=== PATIENT | female | born 1955 | race Caucasian/White ===

== ENCOUNTER 2018-03-30 10:15 | Outpatient (CLI) | payer MEDICAID ==
[~2018-03-30] VITALS: Ht 160 cm; Wt 78.5 kg
[~2018-03-30 10:15] MED LIST: ASPI-587 PO; BUDE10.22 IH; CITA20TA4 PO; DEXL60CA PO; LEVA15HF2 IH; MULT-974 PO; NITR100C3 PO; OXYB92GE TD; PHEN200T27 PO; PREG150C PO; ROSU10TA12 PO; TIOT18CA IH
[2018-03-30] MEDS ORDERED: CITA40TA19 PO (10:25)
[2018-03-30] MEDS ORDERED: TIOT18CA2 IH (10:25)
[2018-03-30] MEDS ORDERED: CHOL200014 PO (10:25)
[2018-03-30] MEDS ORDERED: ASCO500C17 PO (10:25)
[2018-03-30] MEDS ORDERED: ROSU40TA22 PO (10:25)
[2018-03-30] MEDS ORDERED: DEXL60CA PO (10:25)
[2018-03-30] MEDS ORDERED: BUDE10.22 IH (10:25)
[2018-03-30] MEDS ORDERED: ASPI-999 PO (10:25)
[2018-03-30] MEDS ORDERED: LEVA15HF5 IH (10:25)
[2018-03-30] MEDS ORDERED: MULT1CAP27 PO (10:25)
[2018-03-30] MEDS ORDERED: VITA1CAP PO (10:25)
[2018-03-30] MEDS ORDERED: HYDR-3063 PO (10:25)
[2018-03-30] MEDS ORDERED: PREG150C PO (10:25)
[2018-03-31] MEDS ORDERED: NITR-65 PO (09:15)
[2018-03-31] MEDS ORDERED: PHEN-640 PO (09:15)
== END 2018-03-30 10:42 | disposition home or self-care (01) ==
LOC: PREOP 10:15
PROVIDERS: ATTEND Urology
DX: Z01.818 Encounter for other preprocedural examination (principal); N36.42 Intrinsic sphincter deficiency (ISD); N39.46 Mixed incontinence; N32.81 Overactive bladder

== ENCOUNTER 2018-03-31 06:01 | Day surgery (SDC) | payer MEDICAID ==
[~2018-03-31] VITALS: Ht 160 cm; Wt 78.5 kg
[~2018-03-31 06:01] MED LIST changes: +ASCO500C17 PO; +ASPI-999 PO; +CHOL200014 PO; +CITA40TA19 PO; +HYDR-3063 PO; +LEVA15HF5 IH; +MULT1CAP27 PO; +ROSU40TA22 PO; +TIOT18CA2 IH; +VITA1CAP PO
--- OUTSIDE RECORDS SUMMARY | 2018-03-31 06:05 | XMS REPORT ---
Author Author RALF MCKEON Organization [employer] Address Unknown Phone Unavailable Care Team Providers Care Screen Repairer Crusher Name Role Phone RALF MCKEON CP Unavailable Allergies No Known Allergies Problems Problem Type Condition Code Onset Dates Condition Status Assessment Encounter for dental examination Z01.20 Active Medications No Known Medications Procedures Procedure Coding System Code Date ADJUST COMPLETE DENTUR - MANDIBULAR CPT-4 D5411 Aug 09, 2015 Billing Notes on claim CPT-4 EC109 Aug 08, 2015 ADJUST COMPLETE DENTURE - MAXILLARY CPT-4 D5410 Aug 09, 2015 Dental no charge CPT-4 D0099 Aug 08, 2015 Vital Signs Date/Time: Aug 08, 2015 Blood Pressure Diastolic 58 mmHg Blood Pressure Systolic 98 mmHg Results No Known Results Summary Purpose [employer] Submission
--- OUTSIDE RECORDS SUMMARY | 2018-03-31 06:05 | XMS REPORT ---
Author Author RALF MCKEON Organization [employer] Address Unknown Phone Unavailable Care Team Providers Care Smudger Name Role Phone RALF MCKEON CP Unavailable Allergies No Known Allergies Problems Problem Type Condition Code Onset Dates Condition Status Assessment Dental examination Z01.20 Active Medications No Known Medications Procedures Procedure Coding System Code Date RELINE COMPLETE MANDIBULAR DENTURE CPT-4 D5731 November 08, 2015 RELINE COMPLETE MAXILLARY DENTURE CPT-4 D5730 November 08, 2015 Vital Signs Date/Time: November 07, 2015 Blood Pressure Diastolic 73 mmHg Blood Pressure Systolic 126 mmHg Results No Known Results Summary Purpose [employer] Submission
--- OUTSIDE RECORDS SUMMARY | 2018-03-31 06:05 | XMS REPORT ---
Author Author RALF MCKEON Organization [employer] Address Unknown Phone Unavailable Care Team Providers Care Mask Layout Designer Name Role Phone RALF MCKEON CP Unavailable Allergies, Adverse Reactions, Alerts Substance Reaction Event Type Penicillin G Sodium Info Not Available Drug Allergy Codeine Sulfate Info Not Available Drug Allergy Problems Problem Type Condition Code Onset Dates Condition Status Assessment Dental examination V72.2 Active Medications No Known Medications Procedures Procedure Coding System Code Date COMPLETE DENTURE - MANDIBULAR CPT-4 D5120 Jun 04, 2015 Billing Notes on claim CPT-4 EC109 Jul 04, 2015 COMPLETE DENTURE - MAXILLARY CPT-4 D5110 Jun 04, 2015 Vital Signs Date/Time: Jul 04, 2015 Blood Pressure Diastolic 77 mmHg Blood Pressure Systolic 124 mmHg Cardiac Monitoring Heart Rate 64 bpm Results No Known Results Summary Purpose [employer] Submission
--- OUTSIDE RECORDS SUMMARY | 2018-03-31 06:05 | XMS REPORT ---
Author Author RALF MCKEON Organization [employer] Address Unknown Phone Unavailable Care Team Providers Care Firer Watertender Name Role Phone RALF MCKEON CP Unavailable Allergies No Known Allergies Problems Problem Type Condition ICD-9 Code Onset Dates Condition Status Assessment Dental examination V72.2 Active Medications No Known Medications Procedures Procedure Coding System Code Date LTD ORAL EVALUATION - PROBLEM FOCUS CPT-4 D0140 May 09, 2015 Results No Known Results Summary Purpose [employer] Submission
--- OUTSIDE RECORDS SUMMARY | 2018-03-31 06:05 | XMS REPORT ---
Author Author RALF MCKEON Organization [employer] Address Unknown Phone Unavailable Care Team Providers Care Business Banking Officer Name Role Phone RALF MCKEON CP Unavailable Allergies, Adverse Reactions, Alerts Substance Reaction Event Type Penicillin G Sodium Info Not Available Drug Allergy Codeine Sulfate Info Not Available Drug Allergy Problems Problem Type Condition Code Onset Dates Condition Status Assessment Encounter for dental examination Z01.20 Active Medications No Known Medications Procedures Procedure Coding System Code Date Dental no charge CPT-4 D0099 Jun 27, 2015 Vital Signs Date/Time: Jun 27, 2015 Blood Pressure Diastolic 68 mmHg Blood Pressure Systolic 109 mmHg Cardiac Monitoring Heart Rate 64 bpm Results No Known Results Summary Purpose [employer] Submission
--- OUTSIDE RECORDS SUMMARY | 2018-03-31 06:05 | XMS REPORT ---
Author Author RALF MCKEON Organization [employer] Address Unknown Phone Unavailable Care Team Providers Care Beam Dyer Recessed Vat Name Role Phone RALF MCKEON CP Unavailable Allergies, Adverse Reactions, Alerts Substance Reaction Event Type Penicillin G Sodium Info Not Available Drug Allergy Codeine Sulfate Info Not Available Drug Allergy Problems Problem Type Condition Code Onset Dates Condition Status Assessment Encounter for dental examination Z01.20 Active Medications Medication Code System Code Instructions Start Date End Date Status Dosage Lyrica [facility] [id number] Orally not defined Vitamin D [facility] [id number] Orally not defined Procedures Procedure Coding System Code Date Billing Notes on claim CPT-4 EC109 Jun 04, 2015 Dental no charge CPT-4 D0099 Jun 04, 2015 Vital Signs Date/Time: Jun 04, 2015 Blood Pressure Diastolic 66 mmHg Blood Pressure Systolic 107 mmHg Cardiac Monitoring Heart Rate 78 bpm Results No Known Results Summary Purpose [employer] Submission
--- OUTSIDE RECORDS SUMMARY | 2018-03-31 06:05 | XMS REPORT | Continuity of Care Document ---
Author Author [facility] Organization [facility] Address Unknown Phone Unavailable Allergies Active Description Code Type Severity Reaction Onset Reported/Identified Relationship to Patient Clinical Status Yes methadone [id number] Drug Allergy Unknown HIVES, RASH 09/05/2013 Yes Penicillins [id number] Drug Allergy Unknown ANAPHYLACTIC 09/05/2013 Yes Penicillins [id number] Drug Allergy Severe ANAPHYLACTIC 12/04/2014 Yes methadone [id number] Drug Allergy Moderate HIVES, RASH 12/04/2014 Medications There is no data. Problems Date Dx Coded Attending Type Code Diagnosis Diagnosed By 12/06/2014 MARICEL MORA MD Ot 272.0 12/06/2014 ABBY DESIR, MARICEL Palacios Ot 496 12/06/2014 ABBY DESIR, MARICEL Palacios Ot 596.51 12/06/2014 ABBY DESIR, MARICEL Palacios Ot 599.82 12/06/2014 ABBY DESIR, MARICEL Palacios Ot 788.30 12/06/2014 ABBY DESIR, MARICEL Palacios Ot V74.8 Procedures There is no data. Results There is no data. Encounters ACCT No. Visit Date/Time Discharge Status Pt. Type Provider Facility Loc./Unit Complaint [id number] 12/06/2014 07:33:00 12/06/2014 11:05:00 DIS Outpatient MARICEL MORA MD [facility] [id number] 12/01/2014 08:15:00 12/01/2014 23:59:59 CLS Outpatient MARICEL MORA MD [facility] PREOP [id number] 09/07/2013 06:10:00 09/07/2013 11:45:00 DIS Outpatient [id number] 09/05/2013 09:27:00 09/05/2013 23:59:59 CLS Outpatient
--- OUTSIDE RECORDS SUMMARY | 2018-03-31 06:05 | XMS REPORT ---
Author Author RALF MCKEON Organization [employer] Address Unknown Phone Unavailable Care Team Providers Care Gasoline Pump Installer Name Role Phone RALF MCKEON CP Unavailable Allergies, Adverse Reactions, Alerts Substance Reaction Event Type Penicillin G Sodium Info Not Available Drug Allergy Codeine Sulfate Info Not Available Drug Allergy Problems Problem Type Condition Code Onset Dates Condition Status Assessment Dental examination V72.2 Active Medications Medication Code System Code Instructions Start Date End Date Status Dosage Lyrica [facility] [id number] Orally not defined Vitamin D [facility] [id number] Orally not defined Procedures Procedure Coding System Code Date Dental no charge CPT-4 D0099 November 20, 2015 Vital Signs Date/Time: November 20, 2015 Blood Pressure Diastolic 68 mmHg Blood Pressure Systolic 113 mmHg Cardiac Monitoring Heart Rate 74 bpm Results No Known Results Summary Purpose [employer] Submission
[2018-03-31] MEDS ORDERED: NS (IVPB) 50 ML ONE (06:21)
[2018-03-31] MEDS ORDERED: cefTRIAXone 1 GM (ROCEPHIN) VIAL ONE (06:21)
[2018-03-31 06:25] VITALS: BP 126/80
[2018-03-31] MEDS ORDERED: LACTATED RINGERS 1,000 ML IV PRN (06:33)
[2018-03-31] MEDS ORDERED: cefTRIAXone INJECTION 1,000 MG in NS (IVPB) 50 ML IV ONE (06:45)
[2018-03-31] MEDS ORDERED: DEXAMETHASONE 10 MG/ML (DECADRON) 1 ML VIAL ONE (06:48)
[2018-03-31] MEDS ORDERED: ONDANSETRON 4 MG/2 ML (SDV) Z0FRAN ONE (06:48)
[2018-03-31] MEDS ORDERED: MIDAZOLAM 2 MG/2 ML (VERSED) VIAL ONE (06:48)
[2018-03-31] MEDS ORDERED: proPOfol 200 MG/20 ML (DIPRIVAN) VIAL IV ONE (06:48)
[2018-03-31] MEDS ORDERED: LIDOCAINE PF 2% 5 ML (XYLOCAINE) VIAL ONE (06:48)
[2018-03-31] MEDS ORDERED: fentaNYL INJECTION 100 MCG/2 ML AMP ONE (06:48)
[2018-03-31] MEDS ORDERED: FAMOTIDINE 20MG/2ML IV (PEPCID) ONE (06:49)
[2018-03-31] MEDS ORDERED: SEVOFLURANE (ULTANE) 15 ML INHAL SOLN ONE (06:56)
[2018-03-31] MEDS ORDERED: FAMOTIDINE 20MG/2ML IV (PEPCID) IV ONE (07:00)
--- NOTE | 2018-03-31 08:13 | Progress Note-Pre Operative ---
Pre-Operative Progress Note H&P Reviewed The H&P was reviewed, patient examined and no changes noted. Date Seen by Provider: Mar 31, 2018 Time Seen by Provider: 08:12 Date H&P Reviewed: Mar 31, 2018 Time H&P Reviewed: 08:12 Pre-Operative Diagnosis: MIXED INCONTINENCE, OAB, AND ISD MARICEL MORA MD Mar 31, 2018 8:12 am
--- NOTE | 2018-03-31 08:13 | Progress Note-Post Operative ---
Post-Operative Progess Note Surgeon (s)/Barrel Brander (s) Surgeon MARICEL MORA MD Barrel Brander: N/A Pre-Operative Diagnosis MIXED INCONTINENCE, OAB, AND ISD Post-Operative Diagnosis SAME Procedure & Operative Findings Date of Procedure 03/31/18 Procedure Performed/Findings MACROPLASTIQUE IMPLANT Anesthesia Type GENERAL Estimated Blood Loss Estimated blood loss (mL): NEGLIGIBLE Specimens/Packing Specimens Removed N/A Packing: N/A MARICEL MORA MD Mar 31, 2018 8:13 am
--- NOTE | 2018-03-31 08:16 | Discharge Inst-Urology ---
Discharge Inst-Urology Discharge Medications New, Converted, or Re-newed RX: RX on Chart Patient Instructions/Follow Up Plan Please make appointment to been seen in office in 4 weeks. Showers, no bath Keep bowels soft and moving In 48 hours, if no bleeding, may resume ASA Increase oral fluids for 48 hours and then as needed. Diet and Activity as tolerated. If questions or concerns contact your physician Or seek help at emergency department. MARICEL MORA MD Mar 31, 2018 8:15 am
[2018-03-31] MEDS ORDERED: NITR-65 PO (09:15)
[2018-03-31] MEDS ORDERED: PHEN-640 PO (09:15)
[2018-03-31 09:35] VITALS: BP 144/73
[2018-03-31] MEDS ORDERED: PHENAZOPYRIDINE 100 MG (PYRIDIUM) TABLET ONE (09:42)
[2018-03-31] MEDS ORDERED: PHENAZOPYRIDINE 100 MG (PYRIDIUM) TABLET PO ONE (09:45)
[2018-03-31 10:05] VITALS: BP 123/64
[2018-03-31 10:30] VITALS: BP 123/64
[2018-03-31 10:35] VITALS: BP 121/61
--- NOTE | 2018-03-31 14:02 | Anesthesia-General Post-Op ---
General Patient Condition Mental Status/LOC: Same as Preop Cardiovascular: Satisfactory Nausea/Vomiting: Absent Respiratory: Satisfactory Pain: Controlled Complications: Absent Post Op Complications Complications None Follow Up Care/Instructions Patient Instructions None needed. Anesthesia/Patient Condition Patient Condition Patient was seen after the procedure and she was doing well, no complaints, stable vital signs, no apparent adverse anesthesia problems. JOE JOHNSTON DO Mar 31, 2018 14:02
--- NOTE | 2018-03-31 14:32 | OPERATIVE REPORT ---
DATE OF SERVICE: 03/31/2018 PREOPERATIVE DIAGNOSES: Mixed incontinence with intrinsic sphincter deficiency and overactive bladder. POSTOPERATIVE DIAGNOSES: Mixed incontinence with intrinsic sphincter deficiency and overactive bladder. OPERATION PERFORMED: Macroplastique implant. SURGEON: Cuco Mora MD ANESTHESIA: General. COMPLICATIONS: None. DESCRIPTION OF PROCEDURE: Under satisfactory general anesthesia, the patient in lithotomy position, the genitalia were prepped and draped in the usual sterile fashion. Cystoscope was introduced under vision. Injection of a full syringe at the level of the mid urethra using the described technique with very good elevation of the urethra and another syringe at 10 o'clock and another syringe at 2 o'clock. There was excellent coaptation of the urethra all around at the midlevel. The cystoscope was removed and manual Valsalva maneuver was negative. The cystoscope was reintroduced into the bladder. The patient tolerated the procedure and anesthesia well and was sent to recovery room in stable condition. ESTIMATED BLOOD LOSS: Negligible. Job ID: [id number] DocumentID: [id number] Dictated Date: 03/31/2018 08:49:14 Math Professor Date: 03/31/2018 14:30:45 Dictated By: CUCO MORA MD
== END 2018-03-31 10:40 | disposition home or self-care (01) ==
LOC: SDC 06:01
PROVIDERS: ATTEND Urology
DX: N36.42 Intrinsic sphincter deficiency (ISD) (principal); N39.46 Mixed incontinence; N32.81 Overactive bladder; E11.9 Type 2 diabetes mellitus without complications; J44.9 Chronic obstructive pulmonary disease, unspecified; B19.20 Unspecified viral hepatitis C without hepatic coma; J21.9 Acute bronchiolitis, unspecified; Z79.82 Long term (current) use of aspirin; Z86.718 Personal history of other venous thrombosis and embolism
CPT/HCPCS: 82962; 87081

== ENCOUNTER 2020-01-04 14:14 | Outpatient (RCR) | payer MEDICAID ==
[2019-10-27 14:36] LABS: BASOPHILS # (AUTO) 0.1 10^3/uL (0.0-0.1); BASOPHILS % (AUTO) 1 % (0-10); EOSINOPHILS # (AUTO) 0.3 10^3/uL (0.0-0.3); EOSINOPHILS % (AUTO) 2 % (0-10); HEMATOCRIT 44 % (35-52); HEMOGLOBIN 14.6 G/DL (11.5-16.0); LYMPHOCYTES # (AUTO) 4.5 X 10^3 (1.0-4.0); LYMPHOCYTES % (AUTO) 39 % (12-44); MEAN CORPUSCULAR HEMOGLOBIN 29 PG (25-34); MEAN CORPUSCULAR HGB CONC 33 G/DL (32-36); MEAN CORPUSCULAR VOLUME 89 FL (80-99); MEAN PLATELET VOLUME 11.3 FL (7.4-10.4); MONOCYTES % (AUTO) 9 % (0-12); NEUTROPHILS # (AUTO) 5.6 X 10^3 (1.8-7.8); NEUTROPHILS % (AUTO) 49 % (42-75); PLATELET COUNT 206 10^3/uL (130-400); RED CELL DISTRIBUTION WIDTH 14.2 % (10.0-14.5); WHITE BLOOD COUNT 11.4 10^3/uL (4.3-11.0)
[2019-10-27 15:04] LABS: ALANINE AMINOTRANSFERASE 12 U/L (0-55); ALBUMIN 3.9 GM/DL (3.2-4.5); ALKALINE PHOSPHATASE 100 U/L (40-136); BILIRUBIN,TOTAL 0.3 MG/DL (0.1-1.0); BUN/CREATININE RATIO 9; CALCIUM 8.9 MG/DL (8.5-10.1); CARBON DIOXIDE 25 MMOL/L (21-32); CHLORIDE 106 MMOL/L (98-107); CREATININE SERUM 0.69 MG/DL (0.60-1.30); GFR ESTIMATED > 60; GLUCOSE 85 MG/DL (70-105); POTASSIUM 3.7 MMOL/L (3.6-5.0); SODIUM 141 MMOL/L (135-145); TOTAL PROTEIN 6.9 GM/DL (6.4-8.2)
[~2020-01-04 14:14] MED LIST changes: +NITR-65 PO; +PHEN-640 PO; -ROSU40TA22 PO; +ROSU40TA23 PO
[2020-01-04 15:00] LABS: BASOPHILS # (AUTO) 0.1 10^3/uL (0.0-0.1); BASOPHILS % (AUTO) 1 % (0-10); EOSINOPHILS # (AUTO) 0.3 10^3/uL (0.0-0.3); EOSINOPHILS % (AUTO) 2 % (0-10); HEMATOCRIT 47 % (35-52); HEMOGLOBIN 15.7 G/DL (11.5-16.0); LYMPHOCYTES # (AUTO) 5.2 X 10^3 (1.0-4.0); LYMPHOCYTES % (AUTO) 40 % (12-44); MEAN CORPUSCULAR HEMOGLOBIN 29 PG (25-34); MEAN CORPUSCULAR HGB CONC 33 G/DL (32-36); MEAN CORPUSCULAR VOLUME 88 FL (80-99); MEAN PLATELET VOLUME 11.4 FL (7.4-10.4); MONOCYTES # (AUTO) 1.3 X 10^3 (0.0-1.0); MONOCYTES % (AUTO) 10 % (0-12); NEUTROPHILS # (AUTO) 6.2 X 10^3 (1.8-7.8); NEUTROPHILS % (AUTO) 47 % (42-75); PLATELET COUNT 234 10^3/uL (130-400); RED CELL DISTRIBUTION WIDTH 14.3 % (10.0-14.5)
[2020-01-04 15:20] LABS: ALANINE AMINOTRANSFERASE 14 U/L (0-55); ALBUMIN 4.1 GM/DL (3.2-4.5); ALKALINE PHOSPHATASE 114 U/L (40-136); BILIRUBIN,TOTAL 0.3 MG/DL (0.1-1.0); BUN/CREATININE RATIO 9; CALCIUM 9.1 MG/DL (8.5-10.1); CARBON DIOXIDE 26 MMOL/L (21-32); CHLORIDE 107 MMOL/L (98-107); GFR ESTIMATED > 60; GLUCOSE 90 MG/DL (70-105); SODIUM 142 MMOL/L (135-145); TOTAL PROTEIN 7.3 GM/DL (6.4-8.2)
== END 2020-01-25 | disposition home or self-care (01) ==
LOC: ONC 14:14
PROVIDERS: ATTEND Internal Medicine Hematology & Oncology
DX: D72.820 Lymphocytosis (symptomatic) (principal); D72.819 Decreased white blood cell count, unspecified; J44.9 Chronic obstructive pulmonary disease, unspecified; F17.210 Nicotine dependence, cigarettes, uncomplicated; Z90.710 Acquired absence of both cervix and uterus; Z90.49 Acquired absence of other specified parts of digestive tract; Z90.13 Acquired absence of bilateral breasts and nipples; Z86.010 Personal history of colon polyps; Z90.722 Acquired absence of ovaries, bilateral
CPT/HCPCS: 80053; 83615; 85025; 99213; 99214

== ENCOUNTER → 2020-08-10 | Outpatient (CLI) | payer MEDICAID ==
--- NOTE | 2020-08-10 17:03 | Diagnostic Imaging Report ---
INDICATION: Bilateral knee pain. FINDINGS: 4 views. Nonweightbearing images. The joint spaces are well-maintained throughout. The patellofemoral joint shows good alignment. Articulating surfaces are smooth. No hypertrophic bony changes. No chondrocalcinosis. No fractures. IMPRESSION: Normal bilateral knees. Dictated on workstation # [id number]
== END ==
LOC: RAD FS 14:56
PROVIDERS: ATTEND Internal Medicine Rheumatology
DX: M25.561 Pain in right knee (principal); M25.562 Pain in left knee

== ENCOUNTER → 2020-09-04 | Outpatient (CLI) | payer MEDICAID ==
--- NOTE | 2020-09-04 16:56 | Diagnostic Imaging Report ---
EXAMINATION: Bilateral knees at 2:29 PM INDICATION: Knee pain 3 views of each knee joint were obtained. There is no fracture, dislocation or acute bony abnormality evident. There is mild generalized narrowing of all 3 compartments of each knee joint. These findings are similar to the prior exam of 08/10/2020. The soft tissues are unremarkable. IMPRESSION: 1. There is no evidence for an acute bony abnormality. 2. If clinical concern regarding an underlying abnormality persists, then MRI would be recommended for further study. Dictated by: Dictated on workstation # [id number]
== END ==
LOC: RAD FS 14:23
PROVIDERS: ATTEND Family Medicine
DX: M25.561 Pain in right knee (principal); M25.562 Pain in left knee

== ENCOUNTER 2020-09-10 05:28 | Outpatient (RCR) | payer MEDICAID ==
[~2020-09-10] VITALS: Ht 160 cm; Wt 80.5 kg
[2020-09-10] MEDS ORDERED: DULO60CA6 PO (10:11)
[2020-09-10] MEDS ORDERED: ROPI1TAB PO (10:11)
[2020-09-10] MEDS ORDERED: CHOL200074 PO (10:11)
[2020-09-10] MEDS ORDERED: MULT-1136 PO (10:11)
== END 2020-09-10 09:55 | disposition home or self-care (01) ==
LOC: PREOP 05:28
PROVIDERS: ATTEND Urology
DX: Z01.812 Encounter for preprocedural laboratory examination (principal); N36.42 Intrinsic sphincter deficiency (ISD); N39.3 Stress incontinence (female) (male); Z20.822 Contact with and (suspected) exposure to COVID-19
CPT/HCPCS: 87635

== ENCOUNTER 2020-09-12 06:22 | Day surgery (SDC) | payer MEDICAID ==
--- NOTE | 2020-09-11 09:04 | Anesthesia-General Post-Op ---
General Patient Condition Mental Status/LOC: Same as Preop Cardiovascular: Satisfactory Nausea/Vomiting: Absent Respiratory: Satisfactory Pain: Controlled Complications: Absent Post Op Complications Complications None Follow Up Care/Instructions Patient Instructions None needed. Anesthesia/Patient Condition Patient Condition Patient is doing well, no complaints, stable vital signs, no apparent adverse anesthesia problems. No complications reported per nursing. STALIN DOMINGO CRNA Sep 11, 2020 09:04
[2020-09-12] VITALS (9 sets, daily range): BP systolic 81–122; BP diastolic 42–68
[~2020-09-12] VITALS: Ht 160 cm; Wt 80.5 kg
[~2020-09-12 06:22] MED LIST changes: +CHOL200074 PO; +DULO60CA6 PO; +MULT-1136 PO; +ROPI1TAB PO
[2020-09-12] MEDS: LACTATED RINGERS 1,000 ML IV PRN ×2 (06:40→08:37)
[2020-09-12] MEDS ORDERED: CATHETER FLUSH 10 ML SYR IV PRN (06:45)
[2020-09-12] MEDS ORDERED: cefTRIAXone FOR IV USE 1,000 MG in WATER (STERILE) FOR INJECTION 10 ML IV ONE (06:45)
[2020-09-12] MEDS ORDERED: LIDOCAINE PF 2% 5 ML (XYLOCAINE) VIAL ONE (07:01)
[2020-09-12] MEDS ORDERED: ONDANSETRON 4 MG/2 ML (SDV) Z0FRAN ONE (07:01)
[2020-09-12] MEDS ORDERED: SEVOFLURANE (ULTANE) 15 ML INHAL SOLN ONE (07:01)
[2020-09-12] MEDS ORDERED: proPOfol 200 MG/20 ML (DIPRIVAN) VIAL IV ONE (07:01)
[2020-09-12] MEDS ORDERED: fentaNYL INJECTION 100 MCG/2 ML AMP ONE (07:02)
[2020-09-12] MEDS ORDERED: MIDAZOLAM 2 MG/2 ML (VERSED) VIAL ONE (07:02)
--- NOTE | 2020-09-12 07:04 | Progress Note-Pre Operative ---
Pre-Operative Progress Note H&P Reviewed The H&P was reviewed, patient examined and no changes noted. Date Seen by Provider: Sep 12, 2020 Time Seen by Provider: 07:04 Date H&P Reviewed: Sep 12, 2020 Time H&P Reviewed: 07:04 Pre-Operative Diagnosis: INCONTINENCE, ISD, OAB MARICEL MORA MD Sep 12, 2020 07:04
--- NOTE | 2020-09-12 07:11 | Progress Note-Post Operative ---
Post-Operative Progess Note Surgeon (s)/Electro Mechanical Solar Technician (s) Surgeon MARICEL MORA MD Electro Mechanical Solar Technician: NONE Pre-Operative Diagnosis INCONTINENCE, ISD, OAB Post-Operative Diagnosis SAME Procedure & Operative Findings Date of Procedure 09/12/20 Procedure Performed/Findings MACROPLASTIQUE IMPLANT Anesthesia Type GENERAL Estimated Blood Loss Estimated blood loss (mL): NONE Specimens/Packing Specimens Removed NONE Packing: NONE MARICEL MORA MD Sep 12, 2020 07:11
--- NOTE | 2020-09-12 07:12 | Discharge Inst-Urology ---
Discharge Inst-Urology Reconcile Patient Problems Problems Reviewed?: Yes Final Diagnosis INCONTINENCE, ISD, OAB Patient Instructions/Follow Up Plan/Assessment/Instructions Please make appointment to been seen in office in 4 weeks. Increase oral fluids for 48 hours and then as needed. Diet and Activity as tolerated. If questions or concerns contact your physician Or seek help at emergency department. MARICEL MORA MD Sep 12, 2020 07:12
[2020-09-12] MEDS ORDERED: PHENYLEPHRINE 100 MCG/ML 10 ML (ANESTHESIA) SYR ONE (08:13)
[2020-09-12] MEDS ORDERED: PHEN-640 PO (08:28)
[2020-09-12] MEDS ORDERED: NITR-65 PO (08:28)
[2020-09-12] MEDS ORDERED: HYDROmorphone 2 MG/ML VIAL (DILAUDID) IV ONE (08:45)
[2020-09-12] MEDS ORDERED: ONDANSETRON 4 MG/2 ML (SDV) Z0FRAN IVP PRN (08:45)
--- NOTE | 2020-09-12 09:26 | Anesthesia-General Post-Op ---
General Patient Condition Mental Status/LOC: Same as Preop Cardiovascular: Satisfactory Nausea/Vomiting: Absent Respiratory: Satisfactory Pain: Controlled Complications: Absent Post Op Complications Complications None Follow Up Care/Instructions Patient Instructions None needed. Anesthesia/Patient Condition Patient Condition Patient is doing well, no complaints, stable vital signs, no apparent adverse anesthesia problems. No complications reported per nursing. D/C home per [facility] Criteria: Yes NEISHA BLACK CRNA Sep 12, 2020 09:26
--- NOTE | 2020-09-12 10:25 | OPERATIVE REPORT ---
DATE OF SERVICE: 09/12/2020 PREOPERATIVE DIAGNOSES: Urinary incontinence with intrinsic sphincter deficiency and overactive bladder. POSTOPERATIVE DIAGNOSES: Urinary incontinence with intrinsic sphincter deficiency and overactive bladder. OPERATION PERFORMED: Macroplastique implant. SURGEON: Cuco Mora MD. ANESTHESIA: General. COMPLICATIONS: None. DESCRIPTION OF PROCEDURE: Under satisfactory general anesthesia and the patient in lithotomy position, genitalia were prepped and draped in the usual sterile fashion. A cystoscope was introduced under vision and the Macroplastique implant was injected first at the 6 o'clock position at the mid urethra using the described technique and a full syringe was injected. Then, half a syringe at 2 and 10 o'clock position. There was excellent coaptation of the mid urethra. The bladder was left at least half full to perform a manual Valsalva maneuver that was negative. Bladder was emptied. Hemostasis was adequate. The patient tolerated the procedure and anesthesia well and was sent to recovery room in a stable condition. ESTIMATED BLOOD LOSS: Negligible. Job ID: [id number] DocumentID: [id number] Dictated Date: 09/12/2020 08:24:43 Online Content Editor Date: 09/12/2020 10:25:09 Dictated By: CUCO MORA MD
== END 2020-09-12 10:30 | disposition home or self-care (01) ==
LOC: SDC 06:22
PROVIDERS: ATTEND Urology
DX: N36.42 Intrinsic sphincter deficiency (ISD) (principal); R32 Unspecified urinary incontinence; N32.81 Overactive bladder; J44.9 Chronic obstructive pulmonary disease, unspecified; F41.9 Anxiety disorder, unspecified; F32.9 Major depressive disorder, single episode, unspecified; K21.9 Gastro-esophageal reflux disease without esophagitis; E78.00 Pure hypercholesterolemia, unspecified; Z79.899 Other long term (current) drug therapy; Z88.0 Allergy status to penicillin; Z88.7 Allergy status to serum and vaccine; Z88.5 Allergy status to narcotic agent
CPT/HCPCS: 51715; 87081; L8603

== ENCOUNTER → 2020-09-17 | Outpatient (CLI) | payer MEDICAID ==
--- NOTE | 2020-09-17 12:43 | Diagnostic Imaging Report ---
EXAMINATION: Left ankle 3 views HISTORY: ANKLE PAIN COMPARISON: None available. FINDINGS: Alignment is normal. No fracture is seen. Talar dome is normal. There is lateral malleolar swelling. IMPRESSION: 1. Lateral malleolar swelling without fracture. Dictated by: Dictated on workstation # [id number]
== END ==
LOC: RAD FS 12:04
PROVIDERS: ATTEND Nurse Practitioner
DX: M25.572 Pain in left ankle and joints of left foot (principal); R22.42 Localized swelling, mass and lump, left lower limb
CPT/HCPCS: 73610

== ENCOUNTER → 2020-10-15 | Outpatient (CLI) | payer MEDICAID ==
--- NOTE | 2020-10-15 19:19 | Diagnostic Imaging Report ---
INDICATION: Sprain of tarsometatarsal joints. Fell. Left foot pain. Follow-up exam. COMPARISON STUDY: No exams are available. There is a left ankle exam from September 17. FINDINGS: 3 views of the left foot demonstrate a healing nondisplaced fracture through the base of the 4th metatarsal. IMPRESSION: There is a healing nondisplaced fracture through the base of the left 4th metatarsal. Dictated by: Dictated on workstation # [id number]
== END ==
LOC: RAD FS 13:16
PROVIDERS: ATTEND Nurse Practitioner
DX: S92.345D Nondisplaced fracture of fourth metatarsal bone, left foot, subsequent encounter for fracture with routine healing (principal); S93.622D Sprain of tarsometatarsal ligament of left foot, subsequent encounter; W19.XXXA Unspecified fall, initial encounter
CPT/HCPCS: 73630

== ENCOUNTER → 2020-11-08 | Outpatient (CLI) | payer MEDICAID ==
--- NOTE | 2020-11-08 14:03 | Diagnostic Imaging Report ---
INDICATION: Post fall in August, continued ankle pain TECHNIQUE: Three views of the left ankle FINDINGS: There is what appears to be a subacute or more chronic appearing fracture involving the distal fibula. There is slight diastasis along the fracture line up to just under 2 mm. Distal tibia intact. Talar dome maintained. Ankle mortise is preserved. Mild soft tissue swelling present. IMPRESSION: Likely incompletely healed, subacute or more chronic fracture of the distal left fibula. Dictated by: Dictated on workstation # [id number]
--- NOTE | 2020-11-08 14:10 | Diagnostic Imaging Report ---
INDICATION: Status post fall August 2020 with continued pain.. TECHNIQUE: 3 views of the left foot FINDINGS: There is some progressive sclerosis across the base of the 4th metatarsal compatible with healing changes when compared to prior study of 10/15. Alignment is near-anatomic. Definitive residual fracture line was unable to be visualized. Some generalized bony demineralization is present. Mild edema over the hindfoot. IMPRESSION: 1. Healing changes about the nondisplaced fracture proximal 4th metatarsal. Fracture line cannot be definitively visualized on current follow-up study. Dictated by: Dictated on workstation # [id number]
--- NOTE | 2020-11-08 14:12 | Diagnostic Imaging Report ---
INDICATION: Status post fall August 2020 with continued pain in both hips. TECHNIQUE: AP pelvis along with 2 views of the bilateral hips at 10:43 AM. CORRELATION STUDY: None. FINDINGS: The pelvis demonstrates no evidence for acute fracture. The pectineal lines and obturator rings are maintained. Pubic symphysis and SI joints are unremarkable. The femoral head/acetabular relationships appear maintained. There is a sclerotic focus over the right femoral head which may reflect a cystic lesion with a relatively benign appearance. No acute bony abnormality with the bony trabecular pattern otherwise maintained and intact. Multiple clips over the lower abdomen and pelvis. Phlebolith calcifications. IMPRESSION: Negative examination of the pelvis and bilateral hips. Given chronicity of symptoms and if further assessment is desired, CT and/or MRI may be of additional diagnostic utility. Dictated by: Dictated on workstation # [id number]
== END ==
LOC: RAD FS 10:34
PROVIDERS: ATTEND Nurse Practitioner
DX: S82.65XD Nondisplaced fracture of lateral malleolus of left fibula, subsequent encounter for closed fracture with routine healing (principal); S92.345D Nondisplaced fracture of fourth metatarsal bone, left foot, subsequent encounter for fracture with routine healing; W19.XXXD Unspecified fall, subsequent encounter
CPT/HCPCS: 73521; 73610; 73630

== ENCOUNTER → 2020-12-06 | Outpatient (CLI) | payer MEDICAID ==
--- NOTE | 2020-12-06 08:56 | Diagnostic Imaging Report ---
INDICATION: FRACTURE COMPARISON: 11/08/2020. FINDINGS: 3 views of the left ankle were obtained. There is no acute fracture or dislocation. No focal osseous lesions are seen. The surrounding soft tissue structures are unremarkable. There are no radiopaque foreign bodies. IMPRESSION: 1. No acute fracture or dislocation in the left ankle. Dictated by: Dictated on workstation # [id number]
--- NOTE | 2020-12-06 09:40 | Diagnostic Imaging Report ---
INDICATION: Left shoulder pain COMPARISON: None. FINDINGS: Multiple radiographic views of the left shoulder were obtained. There is no fracture, dislocation, or other acute bony abnormality identified. The soft tissues appear unremarkable. No radiopaque foreign bodies identified. The visualized portions of the left lung are clear. IMPRESSION: No acute fractures or dislocations of the left shoulder. Dictated by: Dictated on workstation # [id number]
== END ==
LOC: RAD FS 08:17
PROVIDERS: ATTEND Nurse Practitioner
DX: M25.512 Pain in left shoulder (principal)
CPT/HCPCS: 73030; 73610

== ENCOUNTER → 2021-06-03 | Outpatient (CLI) | payer MEDICAID ==
--- NOTE | 2021-06-03 11:31 | Diagnostic Imaging Report ---
INDICATION: Follow-up left ankle fracture. TIME OF EXAM: 9:56 a.m. COMPARISON: Correlation is made with prior radiograph from 12/06/2020. FINDINGS: The ankle alignment is normal. The ankle mortise is well maintained. Talar dome is smooth. There is a healed fracture of the distal fibula. No acute fracture is seen. IMPRESSION: Healed distal fibular fracture. No acute bony abnormality is detected. Dictated by: Dictated on workstation # [id number]
--- NOTE | 2021-06-03 13:09 | Diagnostic Imaging Report ---
INDICATION: Followup of the left 4th metatarsal fracture. Comparison with 11/08/2020 exam. There has been good healing of the nondisplaced fracture of the proximal 4th metatarsal when compared with previous exam. Alignment remains good with smooth articulating surfaces. No new fractures have developed. No evidence of osteonecrosis. IMPRESSION: There has been healing of the nondisplaced fracture proximal 4th metatarsal. Dictated by: Dictated on workstation # [id number]
== END ==
LOC: RAD FS 09:42
PROVIDERS: ATTEND Nurse Practitioner
DX: S92.345D Nondisplaced fracture of fourth metatarsal bone, left foot, subsequent encounter for fracture with routine healing (principal); S82.55XD Nondisplaced fracture of medial malleolus of left tibia, subsequent encounter for closed fracture with routine healing; S82.65XD Nondisplaced fracture of lateral malleolus of left fibula, subsequent encounter for closed fracture with routine healing; X58.XXXD Exposure to other specified factors, subsequent encounter
CPT/HCPCS: 73610; 73630